=== PATIENT | male | born 1955 | race Caucasian/White ===

== ENCOUNTER 2017-03-01 20:32 | Inpatient (IN) ==
[2017-03-01] MEDS ORDERED: Aspirin 81 MG TAB.CHEW PO STA (20:39)
--- NOTE | 2017-03-01 20:57 | Emergency Department Note ---
Disposition Clinical Impression: Acute coronary syndrome Disposition: Admitted As Inpatient Condition: Critical Referrals: Vamshi Hickman DO [Primary Care Provider] - Forms: ED Satisfaction Letter Chest Pain HPI - General Chief Complaint: ED Chest Pain Stated Complaint: chest pain Time Seen by Provider: 03/01/17 20:36 Source: patient Limitations: no limitations - History of Present Illness HPI Narrative: Patient with no prior cardiac history presents with chest pain. Says that he was walking up a flight of stairs at work at about 1:00 and experienced a tightness in the left side of his chest. It resolved with rest. A couple hours later, he developed some indigestion, says that he did not feel well. Was lying on a couch about an hour ago when he developed a squeezing pain in the left side of his chest associated with some left arm numbness, nausea and diaphoresis. No shortness of breath. Since this pain started an hour ago, he is not able to identify any alleviating or exacerbating factors. The pain is started on hour ago is similar to the pain he had a walking up a flight of stairs earlier, but more intense. No history of similar episodes before today. No ripping or tearing sensation. No numbness or weakness in the arms or legs other than the previously stated numbness in the left arm. No symptoms of GI bleeding. No hemoptysis. No lower extremity pain or swelling. No cocaine use. No abdominal pain. Severity scale (1-10): 10 - Related Data Allergies Allergy/AdvReac Type Severity Reaction Status Date / Time No Known Allergies Allergy Verified 03/01/17 20:32 All systems ED: reviewed and negative except as stated. Chest Pain PMH - Past Medical History Medical history: Reports: hypertension (Well-controlled with medication), seizures. Denies: CHF, coronary artery disease, diabetes, hyperlipidemia Psychiatric history: Reports: no psych history - Social History Smoking Status: Never smoker Alcohol use: Reports: occasionally Drug use: Reports: none. Denies: cocaine Physical Exam - General Limitations: no limitations General appearance: alert, in no apparent distress - Head Head exam: atraumatic, normocephalic - Eye Eye exam: Present: normal appearance. Absent: scleral icterus, conjunctival injection - ENT ENT exam: normal exam, mucous membranes moist - Neck Neck exam: Present: normal inspection, other (No JVD) - Chest Chest inspection: Present: normal inspection, symmetric chest wall rise - Respiratory Respiratory exam: Present: normal lung sounds bilaterally. Absent: respiratory distress, wheezes, stridor, accessory muscle use, prolonged expiratory phase - Cardiovascular Cardiovascular exam: Present: regular rate, normal rhythm, normal heart sounds. Absent: systolic murmur, diastolic murmur - Abdominal Exam Abdominal exam: Present: soft, Non-Tender. Absent: distention, guarding - Extremities Exam Extremities exam: Present: full ROM, other (Left radial pulse 1+, right radial pulse 2+). Absent: joint swelling, calf tenderness - Neurological Exam Neurological exam: Present: alert, oriented X3, other (Normal speech and mental status, no focal deficits or lateralizing signs.) - Psychiatric Psychiatric exam: Present: normal affect, normal mood - Skin Skin exam: Present: warm, dry, intact. Absent: rash, cyanosis Course - Reevaluation(s) Reevaluation #1: Pain down from 10/10 to 8/10 after 2 SL NTG, 4/10 after 3rd. Repeat EKG per my interpretation shows sinus rhythm, rate 56, normal intervals/QRS, no ischemic ST changes, precordial T-waves about half the height as on the first EKG. Nitro drip, Lovenox, Plavix ordered d/t dynamic EKG changes. Reevaluation #2: Despite titration of nitroglycerin drip up to 70 mcg/m, pain was persistent at 4 -5 out of 10 before increasing back to 9 out of 10. Serial EKGs have shown differing heights of the T waves, but no ST segment elevation and no ST segment depression. I spoke with the environmental sampler, who will take the patient to the [facility]. Critical care time: I was directly and primarily involved in the care of this patient for 65 minutes excluding procedures. Vital Signs Temperature 97.9 F 03/01/17 20:33 Pulse Rate 59 03/01/17 20:33 Respiratory Rate 20 03/01/17 20:33 Blood Pressure 195/114 03/01/17 20:33 O2 Sat by Pulse Oximetry 97 03/01/17 20:33 Temperature 97.9 F 03/01/17 20:33 Pulse Rate 65 03/01/17 23:19 Respiratory Rate 16 03/01/17 23:19 Blood Pressure 165/91 03/01/17 23:19 O2 Sat by Pulse Oximetry 95 03/01/17 23:19 Oxygen Delivery Oxygen Delivery Nasal Cannula Chest Pain - Lab Data Result diagrams: 03/01/17 20:40 03/01/17 20:40 Lab Results 03/01/17 03/01/17 03/01/17 Range/Units 20:40 20:40 20:40 Hgb 15.9 (12.9-16.9) g/dL Sodium 138 (136-145) mEq/L Potassium 3.9 (3.5-4.5) mEq/L Chloride 105 (98-109) mEq/L Carbon Dioxide 24 (19-29) mEq/L BUN 14 (8-26) mg/dL Creatinine 0.86 (0.72-1.25) mg/dL Est GFR ( Amer) > 60 (> 60) Est GFR (Non-Af Amer) > 60 (> 60) BUN/Creatinine Ratio 16 (6-26) Glucose 110 H (70-99) mg/dL Calculated Osmolality 287 (280-300) Calcium 10.0 (8.6-10.8) mg/dL Troponin I 0.01 (0-0.03) ng/mL - EKG Data EKG shows normal: sinus rhythm Rate: normal (normal intervals/QRS, occasional PVCs. Prominent T-waves across precordium, no STEMI)
[2017-03-01 21:07] LABS: BUN/Creatinine Ratio 16 (6-26); Blood Urea Nitrogen 14 mg/dL (8-26); Carbon Dioxide 24 mEq/L (19-29); Chloride 105 mEq/L (98-109); Glucose 110 mg/dL (70-99); Osmolality,Calculated 287 (280-300); Potassium 3.9 mEq/L (3.5-4.5); Sodium 138 mEq/L (136-145); eGFR For African Americans > 60 (> 60); eGFR For Non-African Americans > 60 (> 60)
[2017-03-01] MEDS: Nitroglycerin 0.4 MG TAB.SUBL SL PRN ×3 (21:16→21:26)
[2017-03-01] MEDS ORDERED: *HR* Enoxaparin 100 MG/ML SYRINGE SQ STA (21:49)
[2017-03-01] MEDS: Nitroglycerin 25 MG/250 ML INFUS..BTL IVC SCH (22:15)
[2017-03-01] MEDS ORDERED: Nitroglycerin 0.4 MG TAB.SUBL SL ONE (22:18)
[2017-03-02] MEDS ORDERED: Verapamil 5 MG/2 ML VIAL ONE (00:25)
[2017-03-02] MEDS ORDERED: 0.9 % Sodium Chloride 1,000 ML ONE ×2 (00:25→00:42)
[2017-03-02] MEDS ORDERED: *HR* Heparin 10,000 UNIT/10 ML VIAL ONE (00:26)
[2017-03-02] MEDS ORDERED: Nitroglycerin 1,000 MCG/10 ML VIAL IV ONE (00:26)
[2017-03-02] MEDS ORDERED: Heparin 1,000 UNITS/500 mL NS 500 ML ONE (00:26)
[2017-03-02] MEDS ORDERED: *HR* FentaNYL (PF) 100 MCG/2 ML VIAL ONE (00:48)
[2017-03-02] MEDS ORDERED: *HR* Morphine 2 MG/ML SYRINGE IVP PRN (00:48)
--- NOTE | 2017-03-02 00:48 | Pre-Sedation Evaluation ---
Pre-sedation evaluation - Pre-sedation checklist Date of procedure: 03/02/17 Procedure: [facility] Recent Vitals: Last Vital Signs Temp 97.9 F 03/01/17 20:33 Pulse 66 03/02/17 00:20 Resp 18 03/02/17 00:43 BP 107/68 03/02/17 00:43 Pulse Ox 96 03/02/17 00:20 H&P (including ROS) documented in medical record: Yes Previous reaction to sedatives/anesthetics: Unknown Dietary Status: unknown Airway Assessment: Patient can open mouth completely, TMJ function normal, Micrognathia (under-bite, receding chin) absent ASA Classification *see protocol: CLASS II-Mild systemic disease, E-EMERGENCY- Add to any of the above to indicate emergent Plan of Care: Pt appropriate candidate for procedure/moderate/conscious sedation , Risks/benefits of procedure/sedation discussed w/ patient/family, If not NPO; Risk of intake outweiged by necessity to perform procedure
[2017-03-02] MEDS ORDERED: *HR* Midazolam HCl 5 MG/5 ML VIAL IVP ONE (00:49)
[2017-03-02] MEDS ORDERED: Tirofiban 12.5 MG/250ML 12.5 MG/250 ML BAG ONE (01:00)
[2017-03-02] MEDS ORDERED: *HR* Atropine Sulfate 1 MG/10 ML SYRINGE ONE (01:06)
[2017-03-02] MEDS ORDERED: *HR* OxyCODONE/APAP 5/325 TABLET PO PRN (01:32)
[2017-03-02] MEDS ORDERED: Acetaminophen 325 MG TABLET PO PRN (01:32)
[2017-03-02] MEDS ORDERED: *HR* HYDROcodone/Acet 5/325 mg TABLET PO PRN (01:32)
[2017-03-02] MEDS ORDERED: Ondansetron 4 MG/2 ML VIAL IVP PRN (01:32)
--- NOTE | 2017-03-02 01:37 | Cardiology History & Physical ---
Date of Encounter: 03/03/17 Time of Encounter: 01:45 Assessment and Plan (1) Acute GA Current Visit: Yes Status: Acute Acute GA - anterior hyperacute T wave changes with ongoing severe chest pain despite ntg drip, morphine, aspirin, plavix. A/R/B of [facility] discussed with him nd he agrees to proceed. The assessment and plan as outlined above was discussed with the patient and/or family members who expressed understanding and agreement. All questions were answered. Qualifiers: Myocardial infarction ST status: non-ST elevation myocardial infarction Qualified Code(s): I21.4 - Non-ST elevation (NSTEMI) myocardial infarction History of Present Illness Chief complaint: chest pain HPI: Mr. Clay is a 61 year old male with no previous cardiac history here with chest pressure not improved with plavix, aspirin, ntg drip and morphine and hyperacute anterior T wave changes. Pain was a 10/10, temporarily improved to 6 /10 with morphine but soon returned to 9/10 discomfort. Past Med Surg Social Fam HX - Past Medical History Medical history: hypertension (Well-controlled with medication), seizures Psychiatric history: no psych history - Social History Smoking Status: Never smoker Smokeless Tobacco Status: No Alcohol use: occasionally Drug use: none Medications and Allergies Ethosuximide 500 mg PO BID 03/02/17 [History] Ibuprofen [Motrin] 200 - 600 mg PO Q6HR PRN 03/02/17 [History] Methocarbamol [Robaxin-750] 750 mg PO TID 03/02/17 [History] Omeprazole [PriLOSEC] 40 mg PO DAILY 03/02/17 [History] Phenytoin ER [Dilantin ER] 100 mg PO TID 03/02/17 [History] Valsartan [Diovan] 160 mg PO DAILY 03/02/17 [History] Allergies No Known Allergies Allergy (Verified 03/01/17 20:32) All Systems Review: A 10-system review of systems was performed and is negative for pertinent findings except as documented above in the HPI. - Constitutional Constitutional: no chills, no fever(s) - EENT Eyes: no blurred vision, no loss of vision Nose, mouth and throat: no bleeding gums, no epistaxis - Cardiovascular Cardiovascular: chest pain at rest, chest pain with exertion - Respiratory Respiratory: no hemoptysis, no wheezing - Gastrointestinal Gastrointestinal: no hematemesis, no hematochezia - Genitourinary Genitourinary: no hematuria, no nocturia - Musculoskeletal Musculoskeletal: no arthralgias, no myalgias - Integumentary Integumentary: no erythema, no rash - Neurological Neurological: no dizziness, no focal weakness - Psychiatric Psychiatric: no anxiety, no depression - Hematological/Lymphatic Hematologic/Lymphatic: no easy bleeding, no easy bruising Physical Examination Vital Signs, Last 4 Hours Resp BP 03/02/17 00:43 18 107/68 General: Conversant, No Apparent Distress HEENT: Atraumatic Neck: No JVD Cardiac: Reg Rate and Rhythm Lungs: Normal Breath Sounds Neuro: Alert and responsive Abdomen: Soft Skin: No rashes noted on visualized skin Musculoskeletal: No Chest Wall Tenderness Extremities: No Edema Results 03/02/17 03:47 03/02/17 03:47 - EKG Interpretation EKG results cardiology: sinus rhythm (anterior ischemia)
--- NOTE | 2017-03-02 01:54 | Invasive Diagnostic Lab Proc ---
Name: Blane Clay Date of Study: 03/02/2017 Date: 1955 Ht: 65.0in Medical Record#: [id number] Age: 61 Wt: 440.92lb Gender: Male BSA: 2.92 Order #: [id number] BMI: 73.37 Physicians Procedure Physician: Rod Jarvis MD, [facility] Referring MD: Referring MD: Staff Name Position Time In Amara Bird RT Scrub 12:36 AM Julianna Costello RT (R) Monitor 12:36 AM Darion Spring RN Iron Cutter 12:36 AM Indications Indication STEMI Procedures Performed Procedure PRQ CARD REVASC UT 1 VSL Pre-Procedure Checklist Informed consent is complete signed and on chart. H\\T\\P is on chart. ID band is on and ID verified with patient. Patient NPO for procedure The procedure was described for the patient and questions were answered. ECG is on chart. Plan of Care Patient will tolerate the procedure without complications. Adequate level of comfort will be maintained. Hemodynamics will remain stable Patient will recover from procedure without complications. Respiratory function will be maintained. Cardiac rhythm will remain stable. Patient temperature will be maintained. Patient and/or family have verbalized understanding of the procedure. Patient Education Chief Complaint/Reason for Test: Cardiac Cath Developmental Category: Adult (18-64 years) Developmentally Appropriate for Age: Yes Learning Barriers: None Education Needs: Procedure Education Method: Verbal Information Taught: Cardiac Cath Educational Evaluation: Able to repeat information Intravenous Access Time IV Size Location DC'd Fluid/Drip Rate Units RN 12:34 AM 18g 1 1/4" Patent On Arrival Lt Antecubital 12:35 AM 18g 1 1/4" Patent On Arrival Rt Antecubital Allergies NKA No Known Allergies Vital Signs Time BP (mmHg) HR (bpm) O2 Sat. RR (bpm) LOC 12:53 AM / % 5 = Fully awake and oriented or at pre-proc level 12:53 AM / % 4 = Oriented but drowsy 01:08 AM / % 4 = Oriented but drowsy 12:48 AM 131 / 77 63 96 % 15 12:53 AM 123 / 66 64 98 % 15 12:58 AM 123 / 67 80 97 % 01:03 AM 129 / 70 77 94 % 6 01:08 AM 136 / 66 60 97 % 29 01:13 AM 129 / 71 73 97 % 26 01:18 AM 132 / 74 68 96 % 25 01:23 AM 125 / 76 72 97 % 27 01:28 AM 129 / 73 132 97 % 29 01:33 AM 125 / 78 75 98 % 21 01:38 AM 128 / 72 76 97 % 21 Procedural Medications Time Medication Dose Units Method Given By 12:50 AM Oxygen 2 L/min nasal cannula Darion Spring RN 12:52 AM Versed 2 mg Intravenous Darion Spring RN 12:52 AM Fentanyl 50 mcg Intravenous Darion Spring RN 12:53 AM Lidocaine 2% 0.5 ml Subcutaneous Rod Jarvis MD, FAC 12:53 AM Heparin 4000 units Nitroglycerin 200 mcg Verapamil 2.5 mg Intraarterial Rod Jarvis MD, FACC 01:00 AM Aggrastat Bolus: 46 ml Intravenous Darion Spring RN 01:01 AM Aggrastat 12.5mg/250ml 16.5 ml/hr Intravenous Darion Spring RN ASA Classification: CLASS II- Mild systemic disease (i.e. well-controlled diabetes, hypertension, asthma, cigarette smoking) Do Score Preprocedure Postprocedure Activity 2- Moves 4 extremities sustained head lift Activity 2- Moves 4 extremities sustained head lift Circulation 2- SBP +/= 20 points of pre-anesthetic level Circulation 2- SBP +/= 20 points of pre-anesthetic level Consciousness 2- Awake and alert oriented x 3 Consciousness 2- Awake and alert oriented x 3 O2 Saturation 2- Able to maintain O2 satruation of 92% on room air O2 Saturation 2- Able to maintain O2 satruation of 92% on room air Respiratory 2- Able to deep breathe and cough well Respiratory 2- Able to deep breathe and cough well Total Score 10 Total Score 10 Contrast Agent: Isovue Diagnostic Contrast: 238 ml Total Contrast: 238 ml Fluoro Dose: 1144 mGy Procedure Log Time Note Enter By 12:36 AM Amara Bird RT Position: Scrub Time in: 00:36 [email or web address] 12:36 AM Julianna Costello RT (R) Position: Monitor Time in: 00:36 [email or web address] 12:36 AM Darion Spring RN Position: Iron Cutter Time in: 00:36 [facility] 12:36 AM Patient charges- Angio tray pack, Navilyst 3mm J, Pulse Oximetry and ACIST tubing and transducer d[facility]ell 12:36 AM IV Supplies used: J loop Angio Cath. dspell 12:38 AM CathStat 12:40 AM Pt arrived to label coder 2 at 00:40 [facility] 12:47 AM Vitals capture started with the following parameters, Patient=Adult, Interval=5 min, Initial Jvknixnf=317 mmHg, Deflation Rate=5 mmHg, Cuff placed on Right Arm 12:48 AM HR=63 bpm, ZKDU=784/77 mmhg, SpO2=96 %, Resp=15 B/min 12:50 AM Case Start 12:50 AM Physician arrived 00:50 d[facility]ell 12:50 AM ASA Class CLASS II- Mild systemic disease (i.e. well-controlled diabetes, hypertension, asthma, cigarette smoking) [facility] 12:[facility] AM Meet and greet completed [facility] 12:50 AM Sign in performed according to hospital policy. [facility] 12:50 AM Procedure start 00:50 [facility] 12:50 AM Time: 00:50 Oxygen on at 2 L/min per nasal cannula by Darion Spring RN [facility] 12:52 AM Time: 00:52 Versed 2 mg Intravenous Given by Darion Spring RN [facility] 12:52 AM Time: 00:52 Fentanyl 50 mcg Intravenous Given by Darion Spring RN [facility] 12:52 AM Time: 00:52 Patient comfortable and pain free: No [facility] 12:53 AM Time: 00:53LOC: 5 = Fully awake and oriented or at pre-proc level [facility] 12:53 AM Time out performed according to hospital policy [facility] 12:53 AM HR=64 bpm, YVGZ=238/66 mmhg, SpO2=98.0 %, Resp=15 B/min, Comment=NSR 12:53 AM Clinical Presentation: STEMI or equivalent [facility] 12:53 AM Time: 00:53 0.5 ml Lidocaine 2% to right radial Subcutaneous Given by Rod Jarvis MD, [facility] 12:53 AM Time: 00:53 Patient given 4,000 units Heparin, 200 mcg Nitroglycerin, and 2.5 mg Verapamil Intraarterial by Rod Jarvis MD, [facility] 12:53 AM Access obtained by percutaneous puncture. 5Fr 10cm Terumo Glidesheath sheath placed in right Radial artery. [id number] [facility] 12:54 AM 5Fr TIG catheter inserted over the wire [facility] 12:54 AM 0.035 260cm Navilyst 3mmJ wire [id number] [facility] 12:54 AM Pressure channel 1 zeroed. 12:55 AM LCA angiography performed in multiple views. [facility] 12:55 AM Recorded Pressure: Ao, HR=86, Condition=Condition 1 (Aorta) Ao 103/67/84 12:55 AM Recorded Pressure: Ao, HR=75, Condition=Condition 1 (Aorta) Ao 93/75/84 12:56 AM Recorded Pressure: Ao, HR=79, Condition=Condition 1 (Aorta) Ao 99/80/91 12:58 AM Catheter removed [facility] 12:58 AM HR=80 bpm, BDXE=964/67 mmhg, SpO2=97.0 %, Comment=NSR 12:58 AM PCI Status Emergency [facility] 12:58 AM PCI Indication: Immediate PCI for STEMI [facility] 12:59 AM PCI lesion in Mid LAD. Pre Stenosis:100 Pre MOISE Flow: 0 [facility] 12:59 AM 6Fr RBL 3.5 Convey guide catheter was used to cannulate the PCI vessel successfully. reused? No [facility] 12:59 AM .014 PT Graphix 190cm guide wire across target lesion- successful. reused? No [facility] 12:59 AM Inflation device was opened. d[facility]ell[place] 12:59 AM 2.5 mm x 12 mm Emerge Monorail balloon across target lesion- successful. reused? No [facility] 01:00 AM Recorded Pressure: Ao, HR=79, Condition=Condition 1 (Aorta) Ao 104/73/89 01:01 AM Time: 01:00 Aggrastat Bolus: 46 ml Intravenous Given by Darion Spring RN Zambrano pump [facility]:02 AM Time: 01:01 Aggrastat 12.5mg/250ml 16.5 ml/hr Intravenous Given by Darion Spring RN Zambrano pump dspell 01:02 AM Recorded Pressure: Ao, HR=75, Condition=Condition 1 (Aorta) Ao 93/62/77 01:03 AM HR=77 bpm, HCCD=235/70 mmhg, SpO2=94.0 %, Resp=6 B/min, Comment=NSR 01:06 AM Balloon inflated @ 10 tomi for 12 seconds [facility] 01:06 AM Recorded Pressure: Ao, HR=77, Condition=Condition 1 (Aorta) Ao 110/80/96 01:07 AM Balloon inflated @ 10 tomi for 10 seconds [facility] 01:07 AM Balloon inflated @ 10 tomi for 6 seconds [facility] 01:07 AM Balloon inflated @ 10 tomi for 8 seconds [facility] 01:08 AM Time: 00:52 Patient comfortable and pain free: No [facility] 01:08 AM Time: 00:53LOC: 4 = Oriented but drowsy [facility] 01:08 AM HR=60 bpm, AYFM=531/66 mmhg, SpO2=97.0 %, Resp=29 B/min, Comment=NSR 01:08 AM Recorded Pressure: Ao, HR=60, Condition=Condition 1 (Aorta) Ao 109/75/91 01:09 AM Balloon catheter removed intact. [facility] 01:11 AM 2.75mm x 24mm Synergy drug-eluting stent across target lesion- successful Lot #[id number] [facility] 01:11 AM Stent deployed @ 14 tomi for 20 seconds d[facility] 01:13 AM HR=73 bpm, CRIV=566/71 mmhg, SpO2=97.0 %, Resp=26 B/min, Comment=NSR 01:13 AM Stent delivery system removed intact. dspell[facility] 01:13 AM 4.0 mm x 6mm NC Emerge balloon across target lesion- successful. reused? No d[facility] 01:15 AM Balloon inflated @ 20 tomi for 30 seconds d[facility] 01:16 AM Balloon catheter removed intact. d[facility] 01:16 AM Recorded Pressure: Ao, HR=58, Condition=Condition 1 (Aorta) Ao 108/73/90 01:18 AM HR=68 bpm, LSHD=051/74 mmhg, SpO2=96.0 %, Resp=25 B/min, Comment=NSR 01:18 AM Guide wire removed intact. [facility] 01:18 AM 5Fr 3DRC catheter inserted over the wire [id number] [facility] 01:20 AM Recorded Pressure: Ao, HR=78, Condition=Condition 1 (Aorta) Ao 120/68/93 01:22 AM Catheter removed [facility] 01:23 AM Time: 01:08 Patient comfortable and pain free: Yes dspellman :23 AM Time: 01:08LOC: 4 = Oriented but drowsy d[facility] 01:23 AM HR=72 bpm, XYWW=868/76 mmhg, SpO2=97.0 %, Resp=27 B/min, Comment=NSR 01:23 AM 5Fr IM catheter inserted over the wire [id number] d[facility] 01:23 AM Lesion found in Proximal LAD. Pre Stenosis: 30 Pre MOISE Flow: [facility] 01:23 AM Lesion found in Proximal Circumflex. Pre Stenosis: 30 Pre MOISE Flow: [facility] 01:24 AM Coronary Dominance: right d[facility] 01:24 AM Lesion found in Proximal RCA. Pre Stenosis: 30 Pre MOISE Flow: [facility] 01:25 AM Lesion found in Distal RCA. Pre Stenosis: 40 Pre MOISE Flow: d[facility]ell[facility] 01:25 AM Catheter removed d[facility]ell[facility] 01:25 AM 5Fr Pigtail catheter inserted over the wire DNC dspellman 01:27 AM Catheter removed [facility] 01:27 AM 6Fr Pigtail catheter inserted over the wire [id number] d[facility] 01:28 AM LM=836 bpm, TJDT=572/73 mmhg, SpO2=97.0 %, Resp=29 B/min, Comment=NSR 01:28 AM Recorded Pressure: LV, HR=71, Condition=Condition 1 (Left Ventricle) LV 120/14/22 01:29 AM Recorded Pressure: LV, Ao, HR=69, Condition=Condition 1 (Left Ventricle) LV 121/15/22, (Aorta) Ao 102/63/81 01:31 AM Procedure completed at 01:31 dspell[facility] 01:31 AM Sign out completed: Radiation Dose 1143.68 mGy Fluoro Time: 15.0 Isovue 370 - 200ml contrast 238 ml given by Rod Jarvis MD, [facility]. Complications: NoneCardiac Rehab Consult needed: YesConfirmed administered medications: Yes dspell[facility] 01:32 AM Isovue 370 - 200ml,1 Bottle(s) used. d[facility] 01:32 AM Arterial sheath pulled, Vasc Band closure device used and was Successful S/N. dspell[facility] 01:32 AM 10 ml air in Vasc Band. dspellman 01:32 AM Post ECG NSR [facility] 01:32 AM Post Blood Pressure 129/73 [facility] 01:32 AM Information taught Cardiac Cath, PCI, and Vasc Band d[facility] 01:33 AM Education needs Procedure, Plan of Care, and Disease Process dspell 01:33 AM Learning barriers :None dspell 01:33 AM Education Methods Verbal dspell 01:33 AM Education evaluation Able to repeat information dspell 01:33 AM HR=75 bpm, UNVV=098/78 mmhg, SpO2=98.0 %, Resp=21 B/min, Comment=NSR 01:33 AM Site status No bleeding/hematoma - Rt Wrist as reported by Amara Bird RT at 01:33 dspell 01:33 AM Family placed in consult room. dspell 01:33 AM Complications: None dspell 01:33 AM Fluoro Time: 15 dsp:33 AM Isovue 370 - 200ml contrast 238 ml given by Rod Jarvis MD, [facility]. dspell 01:33 AM Radiation Dose 1143.68 mGy dspell 01:38 AM HR=76 bpm, HYPC=723/72 mmhg, SpO2=97.0 %, Resp=21 B/min 01:42 AM Vitals capture stopped. 01:46 AM Report given to Gayatri RAMIREZ Pt taken to ICU Room #9. 01:46 dspell 01:46 AM Patient out of room: [facility] Complications Complication None None Hemodynamics Pressures Site Systolic/A Wave Diastolic/V Wave Mean AO 103 67 84 AO 93 75 84 AO 99 80 91 AO 104 73 89 AO 93 62 77 AO 110 80 96 AO 109 75 91 AO 108 73 90 AO 120 68 93 LV 120 14 22 LV 121 15 22 AO 102 63 81 Post Procedure Information Blood Pressure: 129/73 mmHg Rhythm: NSR Post procedural instructions were given Closure Device Time Device Success/Fail 03/02/2017 1:34:00 AM Mechanical Compression Successful Site Checks Time Location Status Staff Sheath In? Note 01:33 AM Rt Wrist No bleeding/hematoma Amara Bird RT Pulses Time Site Pre-Procedure Post-Procedure Note 03/02/2017 12:53:00 AM Bilateral DP \\T\\ PT 2+ 03/02/2017 1:47:00 AM Bilateral DP \\T\\ PT 2+ 03/02/2017 1:48:00 AM Bilateral radial 2+ Updated by Julianna Costello, RT (R) on 03/02/2017 1:50:39 AM Julianna Costello RT electronically signed on 03/02/2017 1:51:18 AM with status of Final
[2017-03-02 03:58] LABS: Basophils % 0.2 %; Hematocrit 41.6 % (37.5-50.1); Immature Granulocytes % 0.4 % (0-4); Lymphocytes # 1.8 K/mcL (0.6-4.6); Lymphocytes % 17.3 %; Mean Corpuscular HGB Conc 33.4 g/dL (31.6-35.5); Mean Corpuscular Hemoglobin 30.8 pg (28.0-33.3); Mean Corpuscular Volume 92.2 fL (83.0-100.0); Mean Platelet Volume 8.7 fL (9.4-12.4); Monocytes # 0.6 K/mcL (0.0-1.3); Monocytes % 5.7 %; Platelet Count 213 K/mcL (140-400); Red Blood Count 4.51 M/mcL (4.19-5.50); Red Cell Distribution Width 12.6 % (11.5-14.5); Segmented Neutrophils % 76.4 %
[2017-03-02 03:59] LABS: Hemoglobin 13.9 g/dL (12.9-16.9)
[2017-03-02 04:11] LABS: BUN/Creatinine Ratio 17 (6-26); Blood Urea Nitrogen 13 mg/dL (8-26); Calcium 9.4 mg/dL (8.6-10.8); Carbon Dioxide 24 mEq/L (19-29); Chloride 105 mEq/L (98-109); Glucose 149 mg/dL (70-99); Osmolality,Calculated 287 (280-300); Potassium 4.1 mEq/L (3.5-4.5); Sodium 137 mEq/L (136-145); eGFR For African Americans > 60 (> 60); eGFR For Non-African Americans > 60 (> 60)
[2017-03-02 04:24] LABS: Hemoglobin A1C 5.3 %
[2017-03-02] MEDS: Aspirin 81 MG TAB.CHEW PO SCH (08:12)
[2017-03-02] MEDS ORDERED: *HR* Ticagrelor 90 MG TABLET PO SCH (09:00)
--- NOTE | 2017-03-02 10:11 | Event Note ---
Date of Encounter: 03/02/17 Time of Encounter: 10:03 - Cardiology Event Note Mr. Clay presented with acute anterior [place]. He received PEPPER to 100% mLAD. He reports mild chest discomfort this morning after having an echocardiogram. He states he has been sore since they completed echo. Pain is not what he experienced prior to NY and is very mild. EKG ordered. 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 We will start his seizure medications. Importance of DAPT with brilinta and asa uninterrupted for one year reviewed with patient and he voiced understanding. Restart home b/p medications. Systolic 160's this morning. Possible step down later today or in am.
[2017-03-02] MEDS: ETHOSUXIMIDE 500 MG PO SCH ×2 (11:18→17:33)
[2017-03-02] MEDS: Methocarbamol 750 MG TABLET PO SCH ×3 (11:21→20:05)
[2017-03-02] MEDS: Nitroglycerin 25 MG/250 ML INFUS..BTL IVC SCH (14:59)
--- NOTE | 2017-03-02 18:33 | Invasive Diagnostic Lab ---
Name: Blane Clay Date of Study: 03/02/2017 Date: 1955 Ht: 165.1 cm /65.0 in Medical Record#: [id number] Age: 61 Wt: 200. kg / 440.92 lb Account/Order#: [id number] Gender: Male BSA: 2.77 Order #: [id number] Fluoro Dose: 1144 mGy BMI: 73.37 Procedure Physician: Rod Jarvis MD, [facility] Referring MD: Referring MD: Procedures Performed: PCI of Acute PA Left Heart Cath Indications: Acute PA with ongoing symptoms despite NTG drip and dynamic EKG changes Impressions: There is severe one vessel coronary artery disease. The left ventricle is normal and has normal contractility EF 55% Patient had successful PTCA/Drug-Eluting Stent placement in the mid LAD. 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 Aggressive risk factor modification. History/Risk Factors: Seizures Back Sx Hypertension Procedure Access obtained in the right Radial artery by percutaneous puncture Patient had successful PTCA/Drug-Eluting Stent placement in the mid LAD. Complications: None, None Contrast: Isovue 238ml Closure Device: Mechanical Compression Hemodynamics: Pressures Site Systolic/ A Wave Diastolic/ V Wave End Diastolic/ Mean HR AO 103 67 84 86 AO 93 75 84 75 AO 99 80 91 79 AO 104 73 89 79 AO 93 62 77 75 AO 110 80 96 77 AO 109 75 91 60 AO 108 73 90 58 AO 120 68 93 78 LV 120 14 22 71 LV 121 15 22 78 AO 102 63 81 64 LV Ventriculography Ejection Method: LV Gram Ejection Fraction: 55% Wall Motion: WEEMS Anterobasal Normal Anterolateral Normal Apical: Normal Inferoapical Normal Inferobasal Normal Coronary Dominance: right Lesion Findings/Interventions * Left Main Coronary Artery The LMCA is angiographically free of disease. * Left Anterior Descending There is a 30% stenosis in the Proximal LAD. There is a 24 mm long,subtotal 99% stenosis in the Mid LAD. The lesion has a MOISE flow of 1, has thrombus present. An intervention was performed on the Mid LAD with a final stenosis of 0%. There were no lesion complications. The final MOISE flow was 3. The Diag 1 is jailed with 60% stenosis, post stent placement in the Mid LAD with MOISE 3 flow * Circumflex There is a 30% stenosis in the Proximal Circumflex. * Right Coronary Artery There is a 30% stenosis in the Proximal RCA. There is a 40% stenosis in the Distal RCA. Interventional Device(s) Vessel Segment Type Name Diameter (mm) Length (mm) Mid LAD Balloon Emerge Monorail 2.5 12 Mid LAD Drug Eluting Stent Synergy 2.75 24 Mid LAD Balloon NC Emerge 4 6 Updated by Julianna Costello RT (R) on 03/02/2017 1:49:16 AM Rod Jarvis MD, FACC electronically signed on 03/02/2017 6:26:47 PM with status of Final
--- NOTE | 2017-03-02 19:02 | Electrocardiograph Report ---
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
--- NOTE | 2017-03-02 19:03 | Electrocardiograph Report ---
[place] [address] Test Date: 2017-03-01 Pat Name: Blane Clay Department: 102 Room: 09 Gender: M Phone Screener: Caterina : 1955 Requested By: Sharif Campuzano Order Number: [id number] Reading MD: Christine Zendejas Measurements Intervals [place] Rate: 56 P: 5 TN: 154 QRS: -32 QRSD: 104 T: 22 QT: 405 QTc: 396 Interpretive Statements SINUS BRADYCARDIA MARKED LEFT AXIS DEVIATION [QRS AXIS < -30] MINIMAL VOLTAGE CRITERIA FOR LVH, CONSIDER NORMAL VARIANT [MEETS CRITERIA IN ONE OF: R(aVL), S(V1), R(V5), R(V5/V6)+S(V1)] Electronically Signed On 03-02-2017 19:01:33 EDT by Christine Zendejas
--- NOTE | 2017-03-02 19:04 | Electrocardiograph Report ---
[place] [address] Test Date: 2017-03-01 Pat Name: Blane Clay Department: 102 Room: [facility] Gender: M Trophy Assembler: Caterina : 1955 Requested By: Sharif Campuzano Order Number: [id number] Reading MD: Christine Zendejas Measurements Intervals [place] Rate: 64 P: 21 VT: 156 QRS: -31 QRSD: 106 T: 1 QT: 395 QTc: 404 Interpretive Statements SINUS RHYTHM MARKED LEFT AXIS DEVIATION [QRS AXIS < -30] Electronically Signed On 03-02-2017 19:02:04 EDT by Christine Zendejas
--- NOTE | 2017-03-02 19:04 | Electrocardiograph Report ---
[address] [place] [address] Test Date: 2017-03-01 Pat Name: Blane Clay Department: 102 Room: [facility] Gender: M Rx Specialist: Caterina : 1955 Requested By: Rod Jarvis Order Number: [id number] Reading MD: Christine Zendejas Measurements Intervals [place] Rate: 62 P: 39 IN: 142 QRS: -31 QRSD: 106 T: 27 QT: 401 QTc: 407 Interpretive Statements SINUS RHYTHM WITH OCCASIONAL VENTRICULAR PREMATURE COMPLEXES MARKED LEFT AXIS DEVIATION [QRS AXIS < -30] SEPTAL MYOCARDIAL INFARCTION [40+ ms Q WAVE IN V1/V2], OF INDETERMINATE AGE Electronically Signed On 03-02-2017 19:02:52 EDT by Christine Zendejas
--- NOTE | 2017-03-02 19:06 | Electrocardiograph Report ---
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
[2017-03-02] MEDS ORDERED: 0.9 % Sodium Chloride 1,000 ML IVC SCH (19:15)
[2017-03-03] MEDS: Methocarbamol 750 MG TABLET PO SCH ×4 (07:34→20:28)
[2017-03-03] MEDS: Aspirin 81 MG TAB.CHEW PO SCH ×2 (07:34→08:33)
[2017-03-03] MEDS: ETHOSUXIMIDE 500 MG PO SCH ×2 (07:35→20:30)
[2017-03-03] MEDS ORDERED: *HR* HYDROcodone/Acet 5/325 mg TABLET PO PRN (07:47)
[2017-03-03] MEDS ORDERED: Nitroglycerin 0.4 MG TAB.SUBL SL PRN (07:47)
[2017-03-03] MEDS ORDERED: Ondansetron 4 MG/2 ML VIAL IVP PRN (07:47)
[2017-03-03] MEDS ORDERED: Acetaminophen 325 MG TABLET PO PRN (07:47)
[2017-03-03] MEDS: ETHOSUXIMIDE 250 MG PO SCH ×2 (08:39→21:05)
[2017-03-03] MEDS: Valsartan 160 MG TABLET PO SCH (08:52)
--- NOTE | 2017-03-03 12:14 | Cardiology Progress Note ---
Date of Encounter: 03/03/17 Time of Encounter: 12:11 Assessment and Plan (1) Acute [place] Current Visit: Yes Status: Acute Acute anterior [place]. S/p PCI to the mid LAD. [facility] 03/01/17 showed severe one vessel CAD. EF 55%. 30% pLAD stenosis, 99% mLAD stenosis s/p PTCA and PEPPER, jailed 1st diagonal with 60% stenosis s/p PCI, 30% pCx stenosis, 30% pRCA stensis, 40% dRCA stenosis. TTE- EF 60-65%, akenesis of the apical septum and apex, LVH, normal RV size and function. Trileaflet aortic valve that is moderately thickened and calcified. Mild . No pulmonary hypertension. Findings reviewed with patient. He denies recurrent chest pain overnight. He had mild discomfort yesterday morning. No change in EKG. Noted to have jailed 1st diag. He will ambulate in hallway today. Noted on initial EKG to be SR with frequent PAC and PVC on admission. Telemetry review shows NSR with rare PAC and PVC. No VT seen. Importance of DAPT with asa and plavix uninterrupted reviewed with patient and he voiced understanding. Plavix noted to possibly increase dilantin levels as discussed yesterday. Instructed to follow with PCP in 1-2 weeks to monitor. Continue statin and bb. Cardiac rehab ordered. Plan for d/c in am. Qualifiers: Myocardial infarction ST status: non-ST elevation myocardial infarction Qualified Code(s): I21.4 - Non-ST elevation (NSTEMI) myocardial infarction Discussion w patient/family: The assessment and plan as outlined above was discussed with the patient and/or family members who expressed understanding and agreement. All questions were answered. Thank you for involving us in the care of your patient. Please call with any questions. Subjective Principal diagnosis: STEMI Interval history: Denies recurrent chest pain overnight. No problems with the right radial access site. Objective General: Conversant, No Apparent Distress HEENT: Atraumatic, Normocephaly, Mucus Membranes Moist Neck: No JVD, Normal carotid pulses Cardiac: Reg Rate and Rhythm, Normal S1 and S2, No Murmur Lungs: Normal Breath Sounds, No Wheeze, Rales, Rhonchi Neuro: Alert and responsive, No focal deficits noted Abdomen: Soft, Non-Tender Skin: No rashes noted on visualized skin Musculoskeletal: No Chest Wall Tenderness Extremities: No Clubbing, No Cyanosis, No Edema, Normal Pulses Results 03/02/17 03:47 03/02/17 03:47 - Imaging and Cardiology Echo: report reviewed Cardiac cath: report reviewed - EKG Interpretation EKG results cardiology: personally reviewed Consult Discharge Plan - Plan Referrals: Vamshi Hickman DO [Primary Care Provider] -
[2017-03-04] MEDS: Aspirin 81 MG TAB.CHEW PO SCH (07:48)
[2017-03-04] MEDS: Methocarbamol 750 MG TABLET PO SCH (07:48)
[2017-03-04] MEDS: Valsartan 160 MG TABLET PO SCH (07:49)
[2017-03-04 07:56] VITALS: BP 139/79
[2017-03-04] MEDS: ETHOSUXIMIDE 250 MG PO SCH (09:17)
--- NOTE | 2017-03-04 10:05 | Discharge Summary ---
Date of Encounter: 03/04/17 Time of Encounter: 09:00 - Discharge Diagnosis (1) Acute [place] Priority: Primary Status: Acute Comments: Acute [place] with subsequent LHC and PEPPER to mid LAD. Qualifiers: Myocardial infarction ST status: non-ST elevation myocardial infarction Qualified Code(s): I21.4 - Non-ST elevation (NSTEMI) myocardial infarction - Discharge Medications Prescriptions: Nitroglycerin 0.4 mg SL Q5MIN PRN #14 tab.subl PRN Reason: Chest Pain Aspirin 81 mg PO DAILY #30 tab.chew Clopidogrel [Plavix] 75 mg PO DAILY #30 tablet Metoprolol [Lopressor] 25 mg PO BID #60 tablet Rosuvastatin [Crestor] 40 mg PO HS #30 tablet Home Medications: Ethosuximide 500 mg PO BID 03/02/17 [History] Methocarbamol [Robaxin-750] 750 mg PO TID 03/02/17 [History] Omeprazole [PriLOSEC] 40 mg PO DAILY 03/02/17 [History] Phenytoin ER [Dilantin ER] 100 mg PO TID 03/02/17 [History] Valsartan [Diovan] 160 mg PO DAILY 03/02/17 [History] Aspirin 81 mg PO DAILY #30 tab.chew 03/04/17 [Rx] Clopidogrel [Plavix] 75 mg PO DAILY #30 tablet 03/04/17 [Rx] Metoprolol [Lopressor] 25 mg PO BID #60 tablet 03/04/17 [Rx] Nitroglycerin 0.4 mg SL Q5MIN PRN #14 tab.subl 03/04/17 [Rx] Rosuvastatin [Crestor] 40 mg PO HS #30 tablet 03/04/17 [Rx] Allergies/Adverse Reactions: Allergies No Known Allergies Allergy (Verified 03/01/17 20:32) Date of admission: 03/02/17 02:15 Primary care physician: Vamshi Hickman, Discharging clinician: Gerri Alas date of discharge: 03/04/17 - Patient Status Disposition: Home, Self-Care Condition: Good Functional capacity at discharge: independent ambulation Overall status at discharge: patient is progressing back to baseline - Discharge Instructions Instructions: Metoprolol (By mouth), Aspirin (By mouth), Clopidogrel (By mouth) , Rosuvastatin (By mouth), Myocardial Infarction (DC), Coronary Intravascular Stent Placement (DC), Coronary Intravascular Stent Placement, Continuous Improvement Coach ( GEN) Follow Up With: Vamshi Hickman DO [Primary Care Provider] - 03/17/17 9:30 am Neymar Yates DO [Partnered Physician] - (office will call you with your appointment time) Additional Instructions: RISK FACTORS: STOP SMOKING: If you smoke, STOP. Smoking or tobacco use significantly increases your risk of heart disease because nicotine causes the arteries to narrow or constrict. It also causes fats to stick to the artery. Your chances of having a heart attack are greatly increased if you continue to smoke. For more information, call the education line for smoking cessation 9-613-ONYBZRZ EAT A LOW FAT/CHOLESTEROL/SODIUM DIET: This diet may help reduce your chances of having a heart attack. LIFTING: With affected extremity: Avoid bending, pushing off and lifting more than 2 pounds for 24 hours The following 48 hours, avoid lifting anything more than 5 pounds Avoid strenuous activity or repetitive motions ACTIVITY: You may walk or climb stairs as tolerated You can resume sexual activity as tolerated In general, you are encouraged to engage in a minimum of 30 minutes or more of moderate intensity physical activity, such as brisk walking, daily or at least 3 -4 times weekly BATHING Do not submerge the site into water (bath tub, hot tub, swimming pool, dishes) for 1 week. This can be a source for infection into the blood stream. You may shower after 24 hours SITE CARE: After 24 hours, you may remove the dressing and leave the site open to air. Keep the site clean and dry. Clean gently and pat dry. You can expect bruising and tenderness that gradually resolve within a week or two. Return to work as instructed per your physician Resume driving as instructed per physician Keep all scheduled follow up appointments Resume medications as instructed IMPORTANT: If prescribed a Platelet Aggregation Inhibitor such as, Plavix, Brilinta or Effient: Duration of therapy is minimum one year These medications are often used in combination with Aspirin in prevention of future heart attacks Never discontinue unless consult with your Roller Setter STROKE (CVA) Risk factors for a stroke are: Age, cigarette smoking, diabetes, excessive alcohol consumption, family history, high blood pressure, overweight, physical inactivity, prior stroke, heart attack, diagnosis of carotid artery stenosis or other artery disease. Warning signs: Sudden numbness or weakness of the face, arm or leg; especially on one side of the body, sudden confusion, trouble speaking or understanding, sudden trouble seeing in one or both eyes, sudden trouble walking, dizziness, loss of balance or coordination, sudden severe headache with no cause. Call 911 or go to the Emergency Room. CONGESTIVE HEART FAILURE: If you have been diagnosed with Congestive Heart Failure (CHF) and your symptoms return, make an appointment with your physician Weigh yourself daily. Notify your physician if you have a weight gain of two or more pounds in one day or five or more pounds in one week. If you experience any difficulty breathing, please call 911 BLEEDING: Although the risk of bleeding is minimal, it can happen. If you have any bleeding from the site, apply firm pressure above the puncture site for 10-15 minutes. If the bleeding does not stop, continue manual pressure and call 911 Contact [facility] ( ) if: You develop a fever greater than 101 degrees Fahrenheit Your site becomes reddened or has any drainage You have an increase in pain or burning at the site or if a large knot forms at the site. If you experience chest pain, shortness of breath, dizziness, or extreme tiredness, stop the activity and rest. Please notify [facility] office if you experience any of these symptoms and they are not relieved by rest please call 911! - Diet and Activity Activity: increase activity as tolerated Diet: low fat, low cholesterol - Hospital Course Hospital course: Mr. Clay is a 61 year old male who was admitted with acute NV. Patient underwent LHC with subsequent PEPPER to mid LAD. LHC 03/01/17 showed severe one vessel CAD. EF 55%. 30% pLAD stenosis, 99% mLAD stenosis s/p PTCA and PEPPER, jailed 1st diagonal with 60% stenosis s/p PCI, 30% pCx stenosis, 30% pRCA stensis, 40% dRCA stenosis. TTE- EF 60-65%, akenesis of the apical septum and apex, LVH, normal RV size and function. Trileaflet aortic valve that is moderately thickened and calcified. Mild . No pulmonary hypertension. Findings reviewed with patient. Patient denies chest pain overnight. Right radial access site without hemtoma or ecchymosis. Denies issues using right wrist. Access site care given to patient. Patient was started on asa and plavix. Educated patient on importance of dual anti-platelet therapy for at least one year. Patient states understanding. Patient has also been started on beta gianna and statin. Will continue. Of note, plavix with potential interaction with dilantin levels. Issues was discussed yesterday with pharmacy per OBDULIO Smith. Patient will follow up with PCP in 1-2 weeks for dilantin level check. Patient is being prepped for discharge today in stable condition. Patient will follow up in cardiology clinic in 1 week. Follow up set. - Time Spent with Patient Total time spent providing and/or coordinating discharge services: Less than 30 minutes Physical Examination Vital Signs, Last 4 Hours Temp Pulse Resp BP Pulse Ox 03/04/17 07:53 97.7 F 62 16 139/79 98 General: Conversant, No Apparent Distress HEENT: Atraumatic, Normocephaly, Mucus Membranes Moist Neck: No JVD, Normal carotid pulses Cardiac: Reg Rate and Rhythm, Normal S1 and S2, No Murmur Lungs: Normal Breath Sounds, No Wheeze, Rales, Rhonchi Neuro: Alert and responsive, No focal deficits noted Abdomen: Soft, Non-Tender Skin: No rashes noted on visualized skin, Other (Right radial access site without hematoma or ecchymosis. ) Musculoskeletal: No Chest Wall Tenderness Extremities: No Clubbing, No Cyanosis, No Edema, Normal Pulses
== END 2017-03-04 10:55 | disposition home or self-care (01) | DRG 247 ==
LOC: EMEROO 20:32 → ICNU 20:32 → 2NENU 03-03 10:23
PROVIDERS: ADMIT Emergency Medicine; ATTEND Emergency Medicine

== ENCOUNTER 2018-04-11 07:19 | Observation (INO) ==
[2018-04-11 07:52] LABS: Basophils % 0.4 %; Eosinophils % 1.6 %; Hematocrit 47.3 % (37.5-50.1); Hemoglobin 16.3 g/dL (12.9-16.9); Immature Granulocytes % 0.3 % (0-4); Lymphocytes % 32.1 %; Mean Corpuscular HGB Conc 34.5 g/dL (31.6-35.5); Mean Corpuscular Hemoglobin 32.6 pg (28.0-33.3); Mean Corpuscular Volume 94.6 fL (83.0-100.0); Mean Platelet Volume 8.7 fL (9.4-12.4); Monocytes % 11.2 %; Platelet Count 192 K/mcL (140-400); Red Cell Distribution Width 12.4 % (11.5-14.5); Segmented Neutrophils % 54.4 %
[2018-04-11 07:53] LABS: Eosinophils # 0.1 K/mcL (0.0-0.6); Lymphocytes # 2.4 K/mcL (0.6-4.6); Monocytes # 0.8 K/mcL (0.0-1.3); Neutrophils # 4.1 K/mcL (1.6-8.9)
[2018-04-11 08:13] LABS: BUN/Creatinine Ratio 19 (6-26); Blood Urea Nitrogen 14 mg/dL (8-23); Calcium 9.5 mg/dL (8.6-10.3); Carbon Dioxide 26 mEq/L (23-29); Chloride 107 mEq/L (98-107); Glucose 114 mg/dL (70-105); Osmolality,Calculated 287 (280-300); Potassium 4.2 mEq/L (3.5-5.1); Sodium 138 mEq/L (136-145); Troponin I < 0.03 ng/mL (< 0.04); eGFR For Non-African Americans > 60 (> 60)
--- NOTE | 2018-04-11 08:26 | Emergency Department Note ---
Disposition Clinical Impression: Chest pain, rule out acute myocardial infarction Disposition: Admitted As Inpatient Condition: Fair Time of Disposition: 08:20 Chest Pain HPI - General Stated Complaint: CP Time Seen by Provider: 04/11/18 07:23 Source: patient Limitations: no limitations Vital Signs Reviewed: Yes Nursing Notes Reviewed: Yes - History of Present Illness Severity scale (1-10): 1 - Related Data Home Medications Medication Instructions Recorded Confirmed Ethosuximide 500 mg PO BID 03/02/17 03/02/17 Phenytoin ER [Dilantin ER] 100 mg PO TID 03/02/17 03/02/17 Valsartan [Diovan] 160 mg PO DAILY 03/02/17 03/02/17 Tylenol 06/05/17 Previous Rx's Medication Instructions Recorded Aspirin 81 mg PO DAILY #30 tab.chew 03/04/17 Clopidogrel [Plavix] 75 mg PO DAILY #30 tablet 03/04/17 Metoprolol [Lopressor] 25 mg PO BID #60 tablet 03/04/17 Nitroglycerin 0.4 mg SL Q5MIN PRN #14 tab.subl 03/04/17 Rosuvastatin [Crestor] 40 mg PO HS #30 tablet 03/04/17 Acetaminophen [Tylenol] 500 mg PO Q6HR PRN #20 tablet 06/05/17 Benzonatate [Tessalon] 200 mg PO TID PRN #20 capsule 06/05/17 Doxycycline 100 mg PO BID #14 capsule 06/05/17 predniSONE [PredniSONE] 20 mg PO BID #10 tablet 06/05/17 Allergies Allergy/AdvReac Type Severity Reaction Status Date / Time No Known Allergies Allergy Verified 06/05/17 10:04 Chest Pain PMH - Past Medical History Medical history: Reports: non-contributory Psychiatric history: Reports: no psych history - Social History Smoking Status: Never smoker Alcohol use: Reports: occasionally Drug use: Reports: none Physical Exam - General Limitations: no limitations General appearance: alert, in no apparent distress Course Vital Signs Temperature 98.1 F 04/11/18 07:32 Pulse Rate 44 04/11/18 07:32 Respiratory Rate 16 04/11/18 07:32 Blood Pressure 142/78 04/11/18 07:32 O2 Sat by Pulse Oximetry 97 04/11/18 07:32 Temperature 98.1 F 04/11/18 07:32 Pulse Rate 44 04/11/18 07:32 Respiratory Rate 16 04/11/18 07:32 Blood Pressure 142/78 04/11/18 07:32 O2 Sat by Pulse Oximetry 97 04/11/18 07:32 Oxygen Delivery Oxygen Delivery Room Air Chest Pain - Lab Data Result diagrams: 04/11/18 07:42 04/11/18 07:42 Lab Results 04/11/18 04/11/18 04/11/18 Range/Units 07:42 07:42 07:42 WBC 7.5 (4.3-11.1) K/mcL RBC 5.00 (4.19-5.50) M/mcL Hgb 16.3 (12.9-16.9) g/dL Hct 47.3 (37.5-50.1) % MCV 94.6 (83.0-100.0) fL MCH 32.6 (28.0-33.3) pg MCHC 34.5 (31.6-35.5) g/dL RDW 12.4 (11.5-14.5) % Plt Count 192 (140-400) K/mcL MPV 8.7 L (9.4-12.4) fL Immature Gran % 0.3 (0-4) % Seg Neutrophils % 54.4 % Lymphocytes % 32.1 % Monocytes % 11.2 % Eosinophils % 1.6 % Basophils % 0.4 % Neutrophils # 4.1 (1.6-8.9) K/mcL Lymphocytes # 2.4 (0.6-4.6) K/mcL Monocytes # 0.8 (0.0-1.3) K/mcL Eosinophils # 0.1 (0.0-0.6) K/mcL Basophils # 0.0 (0.0-0.2) K/mcL Sodium 138 (136-145) mEq/L Potassium 4.2 (3.5-5.1) mEq/L Chloride 107 (98-107) mEq/L Carbon Dioxide 26 (23-29) mEq/L BUN 14 (8-23) mg/dL Creatinine 0.72 (0.70-1.30) mg/dL Est GFR ( Amer) > 60 (> 60) Est GFR (Non-Af Amer) > 60 (> 60) BUN/Creatinine Ratio 19 (6-26) Glucose 114 H (70-105) mg/dL Calculated Osmolality 287 (280-300) Calcium 9.5 (8.6-10.3) mg/dL Troponin I < 0.03 (< 0.04) ng/mL Specimen Rejected Volume Attestation Statement - Attestation Attestation: I, Valdez Jones, examined this patient and my medical decision-making was reviewed with the AIRPORT CLERK/PA/Advanced Practice Nurse/Resident Physician. I agree with the documented findings, disposition and treatment plan as described except to the extent set forth below. 8-year-old male presents emergency Department with concerns of acute onset chest pain. Patient has a history of MD within the past year. Patient states he was driving to work when he had a pressure in the left upper chest that did not radiate. He did not have associated nausea or diaphoresis. Patient does have a history of high blood pressure and high cholesterol. There is family history of cardiac disease. Patient follows Dr. Jarvis in the emergency department. He took 2 nitroglycerin which helped with his pain, he presented to the emergency department for further evaluation. EKG was bradycardia but did not show evidence of STEMI or other dysrhythmia. Patient states his normal heart rate is around 55. Initial troponin negative. Chest x-ray did not show significant abnormality. Patient is comfortable with the plan for admission to the hospital for further care and evaluation.
--- NOTE | 2018-04-11 08:36 | Emergency Department Note ---
Disposition Clinical Impression: Chest pain Qualifiers: Chest pain type: unspecified Qualified Code(s): R07.9 - Chest pain, unspecified Disposition: Admitted As Inpatient Condition: Fair Time of Disposition: 08:18 Chest Pain HPI - General Chief Complaint: ED Chest Pain Stated Complaint: CP Time Seen by Provider: 04/11/18 07:23 Source: patient Limitations: no limitations Vital Signs Reviewed: Yes Nursing Notes Reviewed: Yes - History of Present Illness HPI Narrative: Patient is a 62-year-old male who presents to [facility] ED with a chief complaint of chest pain. States his symptoms started around 4:30 this morning after he got up for work. States it is sharp stabbing in nature in the left chest but then in overall aching pain that is constant. States this did cause some neck discomfort. Denies any nausea, vomiting, fever or chills. No difficulty breathing. No diaphoresis. He should does have a history of CAD with one stent placed last year. His hydrate control tender is Dr. Jarvis. Patient states he took approximately 4 nitroglycerin at home prior to coming in. Pt complaint: chest pain Onset (ago): hour(s) Duration: constant Onset: during rest Pain Location: left chest Severity: moderate Severity scale (1-10): 1 Quality: aching Pain Radiation: neck Improves with: nitroglycerin Worsens with: nothing Associated symptoms: Denies: nausea, vomiting, dyspnea Treatments prior to arrival chest pain: aspirin, nitroglycerin - Related Data Home Medications Medication Instructions Recorded Confirmed Ethosuximide 500 mg PO BID 03/02/17 03/02/17 Phenytoin ER [Dilantin ER] 100 mg PO TID 03/02/17 03/02/17 Valsartan [Diovan] 160 mg PO DAILY 03/02/17 03/02/17 Tylenol 06/05/17 Previous Rx's Medication Instructions Recorded Aspirin 81 mg PO DAILY #30 tab.chew 03/04/17 Clopidogrel [Plavix] 75 mg PO DAILY #30 tablet 03/04/17 Metoprolol [Lopressor] 25 mg PO BID #60 tablet 03/04/17 Nitroglycerin 0.4 mg SL Q5MIN PRN #14 tab.subl 03/04/17 Rosuvastatin [Crestor] 40 mg PO HS #30 tablet 03/04/17 Acetaminophen [Tylenol] 500 mg PO Q6HR PRN #20 tablet 06/05/17 Benzonatate [Tessalon] 200 mg PO TID PRN #20 capsule 06/05/17 Doxycycline 100 mg PO BID #14 capsule 06/05/17 predniSONE [PredniSONE] 20 mg PO BID #10 tablet 06/05/17 Allergies Allergy/AdvReac Type Severity Reaction Status Date / Time No Known Allergies Allergy Verified 06/05/17 10:04 All systems ED: reviewed and negative except as stated. Chest Pain PMH - Past Medical History Medical history: Reports: non-contributory Psychiatric history: Reports: no psych history - Social History Smoking Status: Never smoker Alcohol use: Reports: occasionally Drug use: Reports: none Physical Exam - General Limitations: no limitations General appearance: alert, in no apparent distress - Head Head exam: atraumatic, normocephalic, normal inspection - Eye Eye exam: Present: EOMI - ENT ENT exam: normal exam, normal oropharynx, mucous membranes moist - Neck Neck exam: Present: normal inspection, full ROM, trachea midline - Chest Chest inspection: Present: normal inspection, symmetric chest wall rise - Respiratory Respiratory exam: Present: normal lung sounds bilaterally - Cardiovascular Cardiovascular exam: Present: normal rhythm, bradycardia - Abdominal Exam Abdominal exam: Present: soft, Non-Tender. Absent: tenderness, distention, guarding, rebound, rigidity - Extremities Exam Extremities exam: Present: normal inspection. Absent: pedal edema - Neurological Exam Neurological exam: Present: alert, oriented X3 - Psychiatric Psychiatric exam: Present: normal affect, normal mood - Skin Skin exam: Present: warm, dry, intact, normal color Course Course Narrative: Patient seen and examined. Chest pain with history of CAD. Cardiopulmonary workup initiated. Currently with a little bit of a chest ache. We will monitor for any worsening chest pain. - Reevaluation(s) Reevaluation #1: EKG shows sinus bradycardia. No ST elevation or depression. We will admit for chest pain, rule out ACS. I discussed with the hospitalist Dr. Hernández has accepted patient for admission. Time: 08:47 Vital Signs Temperature 98.1 F 04/11/18 07:32 Pulse Rate 44 04/11/18 07:32 Respiratory Rate 16 04/11/18 07:32 Blood Pressure 142/78 04/11/18 07:32 O2 Sat by Pulse Oximetry 97 04/11/18 07:32 Temperature 98.1 F 04/11/18 07:32 Pulse Rate 44 04/11/18 07:32 Respiratory Rate 16 04/11/18 07:32 Blood Pressure 142/78 04/11/18 07:32 O2 Sat by Pulse Oximetry 97 04/11/18 07:32 Oxygen Delivery Oxygen Delivery Room Air Chest Pain - Medical Records Medical records reviewed: Yes I reviewed the patient's medical records. - Lab Data Lab results reviewed: Yes I reviewed the patient's lab results. Result diagrams: 04/11/18 07:42 04/11/18 07:42 Lab Results 04/11/18 04/11/18 04/11/18 Range/Units 07:42 07:42 07:42 WBC 7.5 (4.3-11.1) K/mcL RBC 5.00 (4.19-5.50) M/mcL Hgb 16.3 (12.9-16.9) g/dL Hct 47.3 (37.5-50.1) % MCV 94.6 (83.0-100.0) fL MCH 32.6 (28.0-33.3) pg MCHC 34.5 (31.6-35.5) g/dL RDW 12.4 (11.5-14.5) % Plt Count 192 (140-400) K/mcL MPV 8.7 L (9.4-12.4) fL Immature Gran % 0.3 (0-4) % Seg Neutrophils % 54.4 % Lymphocytes % 32.1 % Monocytes % 11.2 % Eosinophils % 1.6 % Basophils % 0.4 % Neutrophils # 4.1 (1.6-8.9) K/mcL Lymphocytes # 2.4 (0.6-4.6) K/mcL Monocytes # 0.8 (0.0-1.3) K/mcL Eosinophils # 0.1 (0.0-0.6) K/mcL Basophils # 0.0 (0.0-0.2) K/mcL Sodium 138 (136-145) mEq/L Potassium 4.2 (3.5-5.1) mEq/L Chloride 107 (98-107) mEq/L Carbon Dioxide 26 (23-29) mEq/L BUN 14 (8-23) mg/dL Creatinine 0.72 (0.70-1.30) mg/dL Est GFR ( Amer) > 60 (> 60) Est GFR (Non-Af Amer) > 60 (> 60) BUN/Creatinine Ratio 19 (6-26) Glucose 114 H (70-105) mg/dL Calculated Osmolality 287 (280-300) Calcium 9.5 (8.6-10.3) mg/dL Troponin I < 0.03 (< 0.04) ng/mL Specimen Rejected Volume - Radiology Data Radiology results reviewed: Yes I reviewed the patient's radiology results. Chest X-Ray 04/11/18 07:23 IMPRESSION: 1. No active pulmonary disease. D/ / Mario Fortune MD / Mario Fortune MD Interpreting Provider: Mario Fortune MD - EKG Data EKG attestation: Yes I reviewed and interpreted this EKG. EKG results narrative: EKG done at 724 shows sinus bradycardia with a rate of [address] elevation or depression. Left axis deviation. Unchanged from prior EKG done . Heart Score - Score History: Moderately Suspicious EKG: Normal Age: 45-65 Risk Factors: Equal/Greater than 3 risk factor or history of atherosclerotic disease Troponin: Less than normal limit HEART Score Total: 4
[2018-04-11 08:52] LABS: Prothrombin Time 11.1 Seconds (9.4-12.1)
[2018-04-11 08:54] LABS: Activated Partial Thrombo Time 31.2 Seconds (26.0-36.0)
--- NOTE | 2018-04-11 08:59 | Internal Med History&Physical ---
Date of Encounter: 04/11/18 Time of Encounter: 09:02 Internal Medicine - H&P: HPI Chief complaint: chest pain History of present illness: Mr. Clay is a 62 year old male with history of CAD status post stent in 2017 on DAPT resented the ED with complaint of chest pain. As per patient his pain started at rest the night before admission around 8 PM lasted for a few seconds and resolved spontaneously. He went to bed and woke up this morning at around 4:30 AM to go to work but again he developed left-sided chest pain that he characterizes as sharp 3 out of 10 pain with intermittent increase in severity. He took 4 nitroglycerin which alleviated the pain but still complains of discomfort in his chest. cannot recall aggravating factors. He had a heart attack in 2017 and reports his symptoms are not similar to when he had his OH. He had recent stress test done in August 2017 which was negative for ischemia. He denies pain on ambulation, no shortness of breath associated with the chest pain, no prolonged immobilization, denies orthopnea or PND or leg swelling. Can walk 1 mile without having to stop for shortness of breath or chest pain. Denies heavy lifting or recent trauma to the chest. He denies fever, chills, recent upper respiratory tract infections, prolonged travel, palpitations, shortness of breath, diaphoresis, nausea, vomiting, diarrhea, or heat or cold intolerance. Past Med Surg Social Fam HX - Past Medical History Medical history: non-contributory Psychiatric history: no psych history - Past Surgical History Additional surgical history: back surgery. Wrist surgery. stent placement march 04 - Social History Smoking Status: Never smoker Smokeless Tobacco Status: No Alcohol use: occasionally Drug use: none Internal Medicine - H&P: Meds Ethosuximide 500 mg PO BID 03/02/17 [History] Phenytoin ER [Dilantin ER] 100 mg PO TID 03/02/17 [History] Valsartan [Diovan] 160 mg PO DAILY 03/02/17 [History] Aspirin 81 mg PO DAILY #30 tab.chew 03/04/17 [Rx] Clopidogrel [Plavix] 75 mg PO DAILY #30 tablet 03/04/17 [Rx] Metoprolol [Lopressor] 25 mg PO BID #60 tablet 03/04/17 [Rx] Nitroglycerin 0.4 mg SL Q5MIN PRN #14 tab.subl 03/04/17 [Rx] Acetaminophen [Tylenol] 500 mg PO Q6HR PRN #20 tablet 06/05/17 [Rx] Amlodipine Besylate 2.5 mg PO DAILY 04/11/18 [History] Methocarbamol [Robaxin-750] 750 mg PO TID 04/11/18 [History] Omeprazole [PriLOSEC] 40 mg PO DAILY 04/11/18 [History] Rosuvastatin [Crestor] 20 mg PO HS 04/11/18 [History] 3 Allergy/AdvReac Type Severity Reaction Status Date / Time No Known Allergies Allergy Verified 06/05/17 10:04 All Systems PM: review of systems was performed and is negative for pertinent findings except as documented above in the HPI. - Constitutional Vitals: Temp Pulse Resp BP Pulse Ox 98.1 F 44 18 142/78 99 04/11/18 07:32 04/11/18 07:32 04/11/18 08:31 04/11/18 07:32 04/11/18 08:31 - Other Additional findings: General: Patient is alert, oriented, no acute distress, obese Head: atraumatic, normocephalic, Eye: normal appearance, PERRL, no scleral icterus, no conjunctival injection ENT: mucous membranes moist, normal external ear exam Neck: normal inspection, trachea midline, full ROM, no JVD Chest: normal inspection, symmetric chest rise Respiratory: Good respiratory effort. Bilateral breath sounds are clear without wheezing, crackles, or rhonchi. non-tender to palpation Cardiovascular: bradycardic s1 and s2 No clicks, rubs, gallops, or murmors. Abdomen: Bowel sounds present normoactive x-4 quadrants. Abdomen is soft, nondistended. no Epigastric tenderness. No guarding or rebound. No organomegaly noted, obese musculoskeletal: Spontaneously moving all extremities. no edema, no calf tenderness Skin: warm, dry, intact. Neuro: Alert and oriented x4. Sensation light touch intact. Cranial nerves 2- 12 is intact. Not aphasic, strength 5/5 in all extremities Psych: Patient's affect is normal Internal Med - H&P Results - Labs CBC & Chem 7: 04/11/18 07:42 04/11/18 07:42 Labs: Short CBC 04/11/18 Range/Units 07:42 WBC 7.5 (4.3-11.1) K/mcL Hgb 16.3 (12.9-16.9) g/dL Hct 47.3 (37.5-50.1) % Plt Count 192 (140-400) K/mcL Neutrophils # 4.1 (1.6-8.9) K/mcL BMP 04/11/18 07:42 Sodium 138 Potassium 4.2 Chloride 107 Carbon Dioxide 26 BUN 14 Creatinine 0.72 Glucose 114 H Calcium 9.5 Cardiac Enzymes 04/11/18 Range/Units 07:42 Troponin I < 0.03 (< 0.04) ng/mL - EKG Data Prior EKG available for review: yes When compared to previous EKG: there is no significant change (sinus bradycardia , LAD ) - Impressions ITS Impressions Chest X-Ray 04/11/18 07:23 IMPRESSION: 1. No active pulmonary disease. D/ / Mario Fortune MD / Mario Fortune MD Interpreting Provider: Mario Fortune MD - Assessment and plan (1) Chest pain, rule out acute myocardial infarction Current Visit: Yes Status: Acute Assessment and plan: patient presented with chest pain at rest relieved with NTG had stress test in august 2017- Exercise ECG is negative for ischemia. 11-beat SVT noted in recovery. The exercise capacity was excellent. Gated EF > 70%. Perfusion imaging was negative for ischemia or infarct. 03/02/17- had TTE LVEF 60-65%. There is akinesis of the apical septum and apex. Mild-moderate concentric left ventricular hypertrophy. Normal right ventricular size and function. Trileaflet aortic valve. Moderately thickened/calcified aortic valve leaflets. Mild aortic stenosis. No evidence of pulmonary hypertension. also has stent placed in february 2017 Patient had successful PTCA/Drug-Eluting Stent placement in the mid LAD. will continue home medications including hi DAPT - took AM medication at home today - hold BB for HR <60 Atropine at bedside, transcutanoues pacer at bedside consider cardiology consultation - follows with Dr. Jarvis TTE (2) Presence of stent in coronary artery in patient with coronary artery disease Current Visit: Yes Status: Acute Assessment and plan: will continue home medications including DAPT if not CI (3) Sinus bradycardia Current Visit: Yes Status: Acute Assessment and plan: atropine and transcutanoues pacer at bedside held BB fpr HR <60- took morning dose at home HR is 45 now held methocarbamol -which can cause bradycardia. We will continue telemetry monitoring Serial EKGs and troponins next one At 1 PM (4) HTN (hypertension) Current Visit: Yes Status: Acute Assessment and plan: continue home medication if not CI Qualifiers: Hypertension type: essential hypertension Qualified Code(s): I10 - Essential (primary) hypertension (5) HLD (hyperlipidemia) Current Visit: Yes Status: Acute Assessment and plan: continue statins lipid panel in the AM Qualifiers: Hyperlipidemia type: unspecified Qualified Code(s): E78.5 - Hyperlipidemia , unspecified (6) DVT prophylaxis Current Visit: Yes Status: Acute Assessment and plan: heparin 5000 units Q8H SC - Time Spent With Patient Total time spent is greater than 50% in coordination of care (as documented) at patient's floor/unit and/or counseling patient:
[2018-04-11] MEDS ORDERED: 0.9 % Sodium Chloride 1,000 ML IVC SCH (09:00)
[2018-04-11] MEDS ORDERED: Nitroglycerin 0.4 MG TAB.SUBL SL PRN (09:11)
[2018-04-11] MEDS: *HR* Heparin 5,000 UNIT/ML VIAL SQ SCH ×2 (14:06→21:23)
--- NOTE | 2018-04-11 17:12 | Electrocardiograph Report ---
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
[2018-04-11] MEDS: ETHOSUXIMIDE 500 MG PO SCH (21:25)
[2018-04-12 04:51] LABS: Basophils % 0.3 %; Eosinophils # 0.1 K/mcL (0.0-0.6); Eosinophils % 1.4 %; Hematocrit 45.5 % (37.5-50.1); Hemoglobin 15.6 g/dL (12.9-16.9); Immature Granulocytes % 0.3 % (0-4); Lymphocytes # 2.8 K/mcL (0.6-4.6); Lymphocytes % 35.8 %; Mean Corpuscular HGB Conc 34.3 g/dL (31.6-35.5); Mean Corpuscular Hemoglobin 32.4 pg (28.0-33.3); Mean Corpuscular Volume 94.4 fL (83.0-100.0); Mean Platelet Volume 8.8 fL (9.4-12.4); Monocytes # 0.7 K/mcL (0.0-1.3); Monocytes % 8.8 %; Neutrophils # 4.1 K/mcL (1.6-8.9); Platelet Count 175 K/mcL (140-400); Red Blood Count 4.82 M/mcL (4.19-5.50); Red Cell Distribution Width 12.4 % (11.5-14.5); Segmented Neutrophils % 53.4 %
[2018-04-12 05:12] LABS: BUN/Creatinine Ratio 17 (6-26); Blood Urea Nitrogen 13 mg/dL (8-23); Calcium 9.4 mg/dL (8.6-10.3); Carbon Dioxide 24 mEq/L (23-29); Chloride 108 mEq/L (98-107); Chol/HDL Ratio 3.7 (0-4.9); Cholesterol 146 mg/dL (< 200); Glucose 99 mg/dL (70-105); HDL Cholesterol 39 mg/dL (40-59); LDL Cholesterol,Calculated 72 mg/dL (0-99); Osmolality,Calculated 288 (280-300); Potassium 4.2 mEq/L (3.5-5.1); Sodium 139 mEq/L (136-145); Triglycerides 176 mg/dL (< 150); eGFR For Non-African Americans > 60 (> 60)
[2018-04-12] MEDS: *HR* Heparin 5,000 UNIT/ML VIAL SQ SCH (06:01)
[2018-04-12] MEDS: ETHOSUXIMIDE 500 MG PO SCH (08:05)
[2018-04-12] MEDS ORDERED: Valsartan 160 MG TABLET PO SCH (09:00)
[2018-04-12] MEDS ORDERED: Aspirin 81 MG TAB.CHEW PO SCH (09:00)
[2018-04-12] MEDS ORDERED: amLODIPine 5 MG TABLET PO SCH (09:00)
[2018-04-12 11:41] VITALS: BP 158/84
--- NOTE | 2018-04-12 12:58 | Discharge Summary ---
- NOTES TO OUTPATIENT PROVIDER Notes to Outpatient Provider: Did have bradycardia - HR 44-48 decrease metoprolol as well as increased Norvasc. Advised to follow up with cardiology. Advised to keep vital sign log Date of Encounter: 04/12/18 Time of Encounter: 12:55 - Discharge Diagnosis (1) Chest pain, rule out acute myocardial infarction Priority: Primary Status: Acute (2) Presence of stent in coronary artery in patient with coronary artery disease Priority: Secondary Status: Acute (3) HTN (hypertension) Priority: Secondary Status: Acute Qualifiers: Hypertension type: essential hypertension Qualified Code(s): I10 - Essential (primary) hypertension (4) HLD (hyperlipidemia) Priority: Secondary Status: Acute Qualifiers: Hyperlipidemia type: unspecified Qualified Code(s): E78.5 - Hyperlipidemia , unspecified (5) Sinus bradycardia Priority: Secondary Status: Acute Hospital course: Mr. Clay is a 62 year old male with past history of CAD status post stents in 2017. He did undergo a cardiac stress test August 2017 with no ischemia or infarct at that time. presented to the ED with complaints of chest pain he did take nitroglycerin without any relief there were no aggravating factors. He was admitted and monitored overnight chest pain resolved on its own. Troponins were cycled which were negative 3. EKG did show bradycardia patient is on a beta gianna metoprolol 25 mg twice a day. He denies any syncopal episodes or lightheadedness. Echo was completed with EF of 60% this was reviewed with Dr. Jarvis via telephone I also updated him on patient's condition. Advised to control patient's blood pressure agreed with decreasing metoprolol like to see the patient and his office as follow-up. I did review telemetry from overnight and appears patient's heart rate is around mid 50s. He did receive his beta gianna this a.m. which she has been ranging around 48. Patient and his verbalize his heart rate has been running low . Encouraged patient to keep a log of blood pressure and heart rate. Also advised patient to follow-up with primary care provider this week since this provider knows him best and can adjust medications accordingly. I give patient prescription for metoprolol 12.5 mg twice a day with parameters as well as Norvasc 5 mg daily. Advised patient to follow-up with cardiology. Patient verbalized understanding he is hemodynamically stable at this time - Time Spent with Patient Total time spent providing and/or coordinating discharge services: - Discharge Medications Prescriptions: amLODIPine [Norvasc] 5 mg PO DAILY #30 tablet Metoprolol [Lopressor] 12.5 mg PO BID #30 tablet Home Medications: Ethosuximide 500 mg PO BID 03/02/17 [History] Phenytoin ER [Dilantin ER] 100 mg PO TID 03/02/17 [History] Valsartan [Diovan] 160 mg PO DAILY 03/02/17 [History] Aspirin 81 mg PO DAILY #30 tab.chew 03/04/17 [Rx] Clopidogrel [Plavix] 75 mg PO DAILY #30 tablet 03/04/17 [Rx] Nitroglycerin 0.4 mg SL Q5MIN PRN #14 tab.subl 03/04/17 [Rx] Acetaminophen [Tylenol] 500 mg PO Q6HR PRN #20 tablet 06/05/17 [Rx] Methocarbamol [Robaxin-750] 750 mg PO TID 04/11/18 [History] Omeprazole [PriLOSEC] 40 mg PO DAILY 04/11/18 [History] Rosuvastatin [Crestor] 20 mg PO HS 04/11/18 [History] Metoprolol [Lopressor] 12.5 mg PO BID #30 tablet 04/12/18 [Rx] amLODIPine [Norvasc] 5 mg PO DAILY #30 tablet 04/12/18 [Rx] Allergies/Adverse Reactions: 3 Allergy/AdvReac Type Severity Reaction Status Date / Time No Known Allergies Allergy Verified 06/05/17 10:04 Date of admission: 04/11/18 08:51 Primary care physician: Tomer Hickman DO Discharging clinician: Jaylyn Khan Anticipated date of discharge: 04/12/18 - Constitutional Vitals: Temp Pulse Resp BP Pulse Ox 98.4 F 50 17 158/84 95 04/12/18 11:40 04/12/18 11:40 04/12/18 11:40 04/12/18 11:40 04/12/18 11:40 General appearance: Present: A&O X 3 - Head Head exam: Present: atraumatic, normocephalic - Eye Eye exam: Present: PERRL, conjuntiva pink, sclera anicteric Pupils: Present: PERRL - Neck Neck exam general surgery: Present: supple, trachea midline. Absent: lymphadenopathy - Respiratory Respiratory exam: Present: CTAB. Absent: accessory muscle use, rales, rhonchi, wheezes - Cardiovascular Cardiovascular exam: Present: RRR, +S1, +S2. Absent: diastolic murmur, gallop, rubs, systolic murmur - GI/Abdominal GI/Abdominal exam: Present: normal bowel sounds, soft, no peritoneal signs. Absent: distended, tenderness - Extremities Exam Extremities exam: Present: warm, radial pulses palpable and symmetrical. Absent : calf tenderness, cyanotic, pedal edema - Neurological Exam Neurological exam: Present: CN II-XII intact, oriented X3, no focal deficits. Absent: pronater drift, facial droop, speech deficit - Skin Skin exam: Present: dry, intact - Patient Status Disposition: Home, Self-Care Condition: Fair Functional capacity at discharge: independent ambulation Overall status at discharge: patient is back to baseline - Discharge Instructions Instructions: Chest Pain (DC) Follow Up With: Vamshi Hickman DO [Primary Care Provider] - Additional Instructions: Follow-up appointments: If there is not an appointment listed below, please call your physician and schedule a follow-up appointment. If you have congestive heart failure and your symptoms return, make an appointment with your physician. Medication List: Carry an up to date list of medications you are taking at all time. We have given you an updated medication list including any new medications that you have been prescribed. Please provide that list to your primary provider Symptoms: If your condition changes or you experience any of the following symptoms, notify your physician immediately: Unusual or worsening pain, fever, persistent nausea and vomiting, bleeding, increase in swelling (especially in your legs), sudden weight gain, extreme dizziness, chest pain, increased drainage or redness from a wound or incision. Go to the emergency department if you experience a problem with breathing. Weights: If you have a history of swelling or shortness of breath, weigh yourself daily and notify your physician if you have a weight gain of two or more pounds in one day or 5 or more pounds in a week. If you experience any of the warning signs for stroke: Sudden numbness or weakness of the face, arm or leg; especially on one side of the body, sudden confusion, trouble speaking or understanding, sudden trouble seeing in one or both eyes, sudden trouble walking, dizziness, loss of balance or coordination, sudden sever headache with no cause; Call 911 or go to the emergency room. Stroke is a medical emergency. Some risk factors for stroke: Age, cigarette smoking, diabetes, excessive alcohol consumption, family history , high blood pressure, overweight, physical inactivity, prior stroke, heart attack, diagnosis of carotid artery stenosis or other artery disease. If you smoke, STOP: Smoking or tobacco use significantly increases your risk of heart and lung disease. Your chance of disease greatly increases if you continue to smoke. For more information, call the [place] tobacco quit line for smoking cessation - QUIT-NOW ( ) - Diet and Activity Activity: increase activity as tolerated Diet: advance to your usual diet
--- NOTE | 2018-04-12 16:33 | Electrocardiograph Report ---
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
[2018-04-13] MEDS ORDERED: amLODIPine 5 MG TABLET PO SCH (09:00)
== END 2018-04-12 14:36 | disposition home or self-care (01) ==
LOC: EMEROO 07:19 → 3BNU 07:19
PROVIDERS: ADMIT Internal Medicine; ATTEND Internal Medicine

== ENCOUNTER 2022-07-09 08:30 | Observation (INO) ==
[2022-07-09] MEDS ORDERED: *HR* FentaNYL (PF) 100 MCG/2 ML VIAL IVP ONE (08:37)
[2022-07-09] MEDS ORDERED: Ondansetron 4 MG/2 ML VIAL IVP ONE (08:38)
[2022-07-09 09:17] LABS: Basophils % 0.4 %; Eosinophils # 0.1 K/mcL (0.0-0.6); Eosinophils % 1.7 %; Hematocrit 52.3 % (37.5-50.1); Hemoglobin 17.2 g/dL (12.9-16.9); Immature Granulocytes % 0.3 % (0-4); Lymphocytes # 2.2 K/mcL (0.6-4.6); Lymphocytes % 28.1 %; Mean Corpuscular HGB Conc 32.9 g/dL (31.6-35.5); Mean Corpuscular Volume 91.1 fL (83.0-100.0); Mean Platelet Volume 8.9 fL (9.4-12.4); Monocytes # 0.5 K/mcL (0.0-1.3); Monocytes % 7.1 %; Neutrophils # 4.8 K/mcL (1.6-8.9); Platelet Count 275 K/mcL (140-400); Red Blood Count 5.74 M/mcL (4.19-5.50); Red Cell Distribution Width 13.2 % (11.5-14.5); Segmented Neutrophils % 62.4 %; White Blood Count 7.7 K/mcL (4.3-11.1)
[2022-07-09 09:26] LABS: Prothrombin Time 11.6 Seconds (9.4-12.1)
[2022-07-09 09:29] LABS: Activated Partial Thrombo Time 27.3 Seconds (26.0-36.0)
[2022-07-09 10:51] LABS: BUN/Creatinine Ratio 14 (6-26); Blood Urea Nitrogen 12 mg/dL (8-23); Calcium 9.8 mg/dL (8.6-10.3); Carbon Dioxide 25 mEq/L (23-29); Chloride 105 mEq/L (98-107); Glucose 100 mg/dL (70-105); Osmolality,Calculated 286 (280-300); Potassium 4.3 mEq/L (3.5-5.1); Sodium 138 mEq/L (136-145); Troponin I < 0.03 ng/mL (< 0.04)
[2022-07-09] MEDS ORDERED: Naloxone 0.4 MG/ML INJ IVP PRN (11:10)
[2022-07-09] MEDS ORDERED: Rizatriptan Benzoate [Maxalt] 10 MG Tablet PO PRN (11:11)
[2022-07-09 14:37] LABS: Bilirubin,Urine Negative (Negative); Blood,Urine Negative (Negative); Clarity,Urine Clear (Clear); Color,Urine Yellow (Yellow); Glucose,Urine (UA) Normal (Normal); Hyaline Casts,Urine Moderate per lpf (None Seen); Ketones,Urine Negative (Negative); Leukocyte Esterase,Urine Negative (Negative); Mucus,Urine Many per lpf (None-Few); Nitrite,Urine Negative (Negative); Protein,Urine 50 mg/dL (Neg-Trace); RBC,Urine 0-3 per hpf (0-3); Renal Epithelial Cells,Urine Few per hpf (None-Few); Specific Gravity,Urine 1.018 (1.010-1.025); Squamous Epithelial Cell,Urine Few per hpf (None-Few); Transitional Epi Cells,Urine Few per hpf (None-Few); Urobilinogen,Urine Normal (Normal); WBC,Urine 0-3 per hpf (0-3)
[2022-07-09] MEDS: Acetaminophen 325 MG TABLET PO PRN ×2 (15:12→21:45)
[2022-07-09 17:03] LABS: Estimated Average Glucose 114 mg/dl; Hemoglobin A1C 5.6 %
[2022-07-09 17:42] LABS: Chol/HDL Ratio 3.7 (0-4.9); Cholesterol 160 mg/dL (< 200); HDL Cholesterol 43 mg/dL (40-59); LDL Cholesterol,Calculated 97 mg/dL (< 100); Triglycerides 102 mg/dL (< 150)
[2022-07-09] MEDS: ETHOSUXIMIDE 250 MG PO SCH (21:46)
[2022-07-10 05:15] LABS: Basophils % 0.4 %; Eosinophils # 0.2 K/mcL (0.0-0.6); Eosinophils % 2.2 %; Hematocrit 46.3 % (37.5-50.1); Immature Granulocytes % 0.3 % (0-4); Lymphocytes # 2.6 K/mcL (0.6-4.6); Lymphocytes % 35.1 %; Mean Corpuscular HGB Conc 32.6 g/dL (31.6-35.5); Mean Corpuscular Hemoglobin 30.7 pg (28.0-33.3); Mean Corpuscular Volume 94.1 fL (83.0-100.0); Mean Platelet Volume 9.2 fL (9.4-12.4); Monocytes # 0.8 K/mcL (0.0-1.3); Monocytes % 11.2 %; Neutrophils # 3.8 K/mcL (1.6-8.9); Platelet Count 246 K/mcL (140-400); Red Blood Count 4.92 M/mcL (4.19-5.50); Red Cell Distribution Width 13.4 % (11.5-14.5); Segmented Neutrophils % 50.8 %; White Blood Count 7.4 K/mcL (4.3-11.1)
[2022-07-10 06:09] LABS: Hemoglobin 15.1 g/dL (12.9-16.9)
[2022-07-10] MEDS ORDERED: Regadenoson 0.4 MG/5 ML SYRINGE IVP ONE (07:28)
[2022-07-10] MEDS: ETHOSUXIMIDE 250 MG PO SCH (08:39)
[2022-07-10 08:47] VITALS: BP 161/87; PULSE 53; TEMP 98; O2SAT 100
[2022-07-10] MEDS ORDERED: amLODIPine 5 MG TABLET PO SCH (09:00)
[2022-07-10] MEDS ORDERED: Aspirin Enteric Coated 81 MG Tablet PO SCH (09:00)
[2022-07-10] MEDS ORDERED: Valsartan 160 MG TABLET PO SCH (09:00)
== END 2022-07-10 11:28 | disposition home or self-care (01) ==
LOC: EMEROOARM 08:30 → 3BNU 08:30 → SUATTDRO 12:50 → 3BNU 13:33
PROVIDERS: ADMIT Internal Medicine; ATTEND Internal Medicine